=== PATIENT | female | born 1965 | race Caucasian/White ===

== ENCOUNTER 2017-09-19 16:07 | Inpatient (IN) | payer BC ==
--- NOTE | 2017-09-19 16:40 | Emergency Department Record ---
History of Present Illness - General Chief complaint: Lower Extremity Pain Stated complaint: BLOOD CLOT Time Seen by Provider: 09/19/17 16:29 Source: Patient, RN notes reviewed Mode of Arrival: Wheelchair - History of Present Illness Initial comments: patient sent to US department for a venous dopler on the left leg which was positive and she was brought to the ED. Patients oncologist Dr. Bailey sent her for the US, primary Dr. Zhong. No chest pain, No dyspnea and she had bladder cancer 1 years ago and she has a urostomy bag. Patients left leg is swollen and it started about 6 weeks ago. Leg started hurting about 6 weeks ago. Patient is currently getting cancer therapy. Post radiation therapy one month ago. Onset/Timin -: Month(s) Location: Left, Thigh History of Same: No Severity scale (1-10): 5 Quality: Aching Consistency: Constant Improves with: Nothing Worsens with: Walking Associated Symptoms: Denies other symptoms - Related Data Home Medications Medication Instructions Recorded Confirmed Last Taken Alprazolam [Alprazolam] 0.25 mg PO ASDIR 09/19/17 09/19/17 Unknown Atorvastatin Calcium [Lipitor] 20 mg PO DAILY 09/19/17 09/19/17 Unknown Dexamethasone [Dexamethasone] 2 mg PO DAILY 09/19/17 09/19/17 Unknown Omeprazole 20 mg PO DAILY 09/19/17 09/19/17 Unknown Allergies Allergy/AdvReac Type Severity Reaction Status Date / Time acetaminophen [From [place]] Allergy VOMITING Verified 09/19/17 16:24 hydrocodone [From [place]] Allergy VOMITING Verified 09/19/17 16:24 Travel Screening - Travel/Exposure Within Last 30 Days Have you traveled within the last 30 days?: No Review of Systems Reviewed: No additional complaints except as noted below Constitutional: Reports: As per HPI. Denies: Chills, Fever, Malaise, Night sweats, Weakness, Weight change Eyes: Reports: As per HPI. Denies: Eye discharge, Eye pain, Photophobia, Vision change ENT: Reports: As per HPI. Denies: Congestion, Dental pain, Ear pain, Epistaxis , Hearing loss, Throat pain Respiratory: Reports: As per HPI. Denies: Cough, Dyspnea, Hemoptysis, Stridor, Wheezes Cardiovascular: Reports: As per HPI. Denies: Arrhythmia, Chest pain, Dyspnea on exertion, Edema, Murmurs, Orthopnea, Palpitations, Paroxysmal nocturnal dyspnea, Rheumatic Fever, Syncope Endocrine: Reports: As per HPI. Denies: Fatigue, Heat or cold intolerance, Polydipsia, Polyuria Gastrointestinal: Reports: As per HPI. Denies: Abdominal pain, Constipation, Diarrhea, Hematemesis, Hematochezia, Melena, Nausea, Vomiting Genitourinary: Reports: As per HPI. Denies: Abnormal menses, Discharge, Dyspareunia, Dysuria, Frequency, Hematuria, Incontinence, Retention, Urgency Musculoskeletal: Reports: As per HPI. Denies: Arthralgia, Back pain, Gout, Joint swelling, Myalgia, Neck pain Skin: Reports: As per HPI. Denies: Bruising, Change in color, Change in hair/ nails, Lesions, Pruritus, Rash Neurological: Reports: As per HPI. Denies: Abnormal gait, Confusion, Headache, Numbness, Paresthesias, Seizure, Tingling, Tremors, Vertigo, Weakness Psychiatric: Reports: As per HPI. Denies: Anxiety, Auditory hallucinations, Depression, Homicidal thoughts, Suicidal thoughts, Visual hallucinations Hematological/Lymphatic: Reports: As per HPI. Denies: Anemia, Blood Clots, Easy bleeding, Easy bruising, Swollen glands Past Medical History - SOCIAL HISTORY Smoking Status: Current every day smoker Alcohol Use: None Drug Use: None - RESPIRATORY Hx Respiratory Disorders: No - CARDIOVASCULAR Hx Cardio Disorders: No Comment:: high cholesterol - NEURO Hx Neuro Disorders: Yes Hx Headaches: Yes Hx of Migraines: Yes - GI Hx GI Disorders: Yes Hx Reflux: Yes - Hx Genitourinary Disorders: No - ENDOCRINE Hx Endocrine Disorders: No - MUSCULOSKELETAL Hx Musculoskeletal Disorders: No - PSYCH Hx Psych Problems: No - HEMATOLOGY/ONCOLOGY Hx Hematology/Oncology Disorders: Yes Hx Cancer: Yes (bladder, brain) Family Medical History Any Significant Family History?: No Physical Exam - General General Appearance: Alert, Oriented x3, Cooperative, No acute distress - Head Head exam: Normal inspection - Eye Eye exam: Normal appearance, PERRL Pupils: Normal accommodation - ENT ENT exam: Normal exam, Mucous membranes moist, Normal external ear exam, Normal orophraynx, TM's normal bilaterally Ear exam: Normal external inspection. negative: External canal tenderness Nasal Exam: Normal inspection. negative: Discharge, Sinus tenderness Mouth exam: Normal external inspection, Tongue normal Teeth exam: Normal inspection. negative: Dental caries Throat exam: Normal inspection. negative: Tonsillar erythema, Tonsillar exudate - Neck Neck exam: Normal inspection, Full ROM. negative: Tenderness - Respiratory Respiratory exam: Normal lung sounds bilaterally. negative: Respiratory distress - Cardiovascular Cardiovascular Exam: Regular rate, Normal rhythm, Normal heart sounds - GI/Abdominal GI/Abdominal exam: Soft, Normal bowel sounds. negative: Tenderness - Rectal Rectal exam: Deferred - exam: Deferred - Extremities Extremities exam: Normal inspection, Full ROM, Normal capillary refill. negative: Tenderness - Back Back exam: Reports: Normal inspection, Full ROM. Denies: Muscle spasm, Rash noted, Tenderness - Neurological Neurological exam: Alert, Normal gait, Oriented X3, Reflexes normal - Psychiatric Psychiatric exam: Normal affect, Normal mood - Skin Skin exam: Dry, Intact, Normal color, Warm Course Vital Signs 09/19/17 16:17 Temperature 98.2 F Pulse Rate 85 Respiratory 18 Rate Blood Pressure 141/93 Pulse Ox 91 L US OF THE LEFT LOWER LEG POAITIVE FOR dvt IN THE LEFT COMMON FEMORAL VEIN and superficial vein and minimially in the popliteal vein. - Reevaluation(s) Reevaluation #1: discussed case with Sophie Ibanez and she was confidant we would be able to take care of this here and stable PE and DVT are being sent home from the ED with eder. Talked to Flavia and she accepted the patient. 09/19/17 20:02 Medical Decision Making - Data Complexity MDM Data: Labs Ordered and/or Reviewed, X-Ray Ordered and/or Reviewed (reviewed US dictation of the left leg and positive for a DVT , CTA bilateral upper lob PE in the branches small PE no central emboli) - Lab Data Result diagrams: 09/19/17 17:10 09/19/17 17:10 Disposition Clinical Impression: Hypokalemia DVT of leg (deep venous thrombosis) Qualifiers: Affected thrombotic vein of extremity: femoral Chronicity: acute Laterality: left Qualified Code(s): I82.412 - Acute embolism and thrombosis of left femoral vein Pulmonary embolism Qualifiers: Pulmonary embolism type: other Chronicity: acute Acute cor pulmonale presence: without acute cor pulmonale Qualified Code(s): I26.99 - Other pulmonary embolism without acute cor pulmonale Decision to Admit: Admit from ER Condition: (2) Stable Forms: Patient Portal Access Quality - Quality Measures Quality Measures: N/A - Blood Pressure Screening Does Patient Have Any of the Following: No Blood Pressure Classification: Hypertensive Reading Systolic Measurement: 141 Diastolic Measurement: 93 Screening for High Blood Pressure: < Pre-Hypertensive BP, F/U Documented > [ [id number]] Pre-Hypertensive Follow-up Interventions: Referral to alternative/primary care provider.
[2017-09-19 17:33] LABS: HEMATOCRIT 34.2 % (35.0-47.0); HEMOGLOBIN 11.5 gm/dl (11.6-16.0); MEAN CELL VOLUME 96.3 fl (81-97); MEAN CORPUSCULAR HGB CONC 33.6 g/dl (32-36); MEAN PLATELET VOLUME 10.8 fl (7.4-10.4); PLATELET COUNT 126 K/uL (130-400); RED BLOOD COUNT 3.55 M/uL (3.80-5.40); RED CELL DISTRIBUTION WIDTH 15.9 % (11.5-14.5); WHITE BLOOD COUNT W/O DIFF 7.6 K/uL (4.2-12.2)
[2017-09-19 17:35] LABS: MEAN CORPUSCULAR HEMOGLOBIN 32.3 pg (27-33)
[2017-09-19 17:43] LABS: PLATELET ESTIMATE NORMAL (NORMAL)
[2017-09-19 17:47] LABS: BLOOD UREA NITROGEN 13 mg/dL (6-20); CREATININE 0.6 mg/dL (0.5-0.9); EST GLOMERULAR FILTRATION RATE > 60 mL/min
[2017-09-19 17:49] LABS: INR 1.1; PARTIAL THROMBOPLASTIN TIME 27.4 SECONDS (24.5-39.1); PROTHROMBIN TIME (PATIENT) 11.3 SECONDS (9.5-12.1)
[2017-09-19 17:50] LABS: GLUCOSE,RANDOM 100 mg/dL (74-109)
[2017-09-19] MEDS ORDERED: APIXABAN 5MG TABLET PO ONE (18:38)
[2017-09-19] MEDS ORDERED: POTASSIUM CHLORIDE 20 MEQ TABLET PO ONE (18:42)
[2017-09-19] MEDS ORDERED: 0.9 % SODIUM CHLORIDE 500ML 500 ML IV SCH (18:45)
[2017-09-19] MEDS ORDERED: ALPRAZOLAM 0.25 MG TABLET PO SCH (22:09)
[2017-09-19] MEDS: ACETAMINOPHEN 500 MG TABLET PO PRN (23:43)
[2017-09-19] MEDS: APIXABAN 5MG TABLET PO SCH (23:44)
[2017-09-20] MEDS: PANTOPRAZOLE SODIUM 40 MG TABLET PO SCH (06:26)
[2017-09-20 06:55] LABS: HEMOGLOBIN 10.3 gm/dl (11.6-16.0); MEAN CELL VOLUME 97.2 fl (81-97); MEAN CORPUSCULAR HGB CONC 33.2 g/dl (32-36); MEAN PLATELET VOLUME 10.5 fl (7.4-10.4); PLATELET COUNT 129 K/uL (130-400); RED BLOOD COUNT 3.19 M/uL (3.80-5.40); RED CELL DISTRIBUTION WIDTH 15.9 % (11.5-14.5); WHITE BLOOD COUNT W/O DIFF 6.1 K/uL (4.2-12.2)
[2017-09-20 07:00] LABS: MEAN CORPUSCULAR HEMOGLOBIN 32.2 pg (27-33)
[2017-09-20 07:14] LABS: ALBUMIN 2.9 g/dL (4.0-5.0); ALKALINE PHOSPHATASE 73 U/L (35-104); ALT/SGPT 36 U/L (<33); AST/SGOT 25 U/L (10.0-35.0); BLOOD UREA NITROGEN 16 mg/dL (6-20); CREATININE 0.7 mg/dL (0.5-0.9); EST GLOMERULAR FILTRATION RATE > 60 mL/min; GLUCOSE,RANDOM 108 mg/dL (74-109); TOTAL PROTEIN 5.7 g/dL (6.6-8.7)
[2017-09-20] MEDS ORDERED: POTASSIUM CHLORIDE 20 MEQ TABLET PO ONE (08:33)
--- NOTE | 2017-09-20 08:37 | History & Physical ---
History of Present Illness - Date of Service Date of Service for History & Physical: 09/20/17 - History of Present Illness Admitting Diagnosis: left DVT. small PE Bilaterally in the periphery. hypokalemia. bladder cancer History of Present Illness: Mrs. Scott is a 52 year-old female who presented to the ED on 09/19 after having a venous doppler of her left leg which was positive for DVT extending from her knee to her hip. 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 Last radiation therapy was one month ago. She denied chest pain, dyspnea. She did complain of bilateral leg pain that began aboukt 6 weeks ago and left leg swelling. In the ED, CBC, CMP and PT/INR were ordered. Potassium was 2.8 and replaced with 40mEq K PO. An ultrasound of her left leg was performend and positive for DVT int eh left common femoral vein and superficial vein, minimally in the poplieal vein. CTA done and demonstrated several bilateral upper lobe PE in the branches small PE, no central embolil. Dr. Martinez discussed the case with Dr. Ibanez at [facility] and Dr. Ibanez was confident that [facility] could manage pt., stating that stable PE and DVT are being sent home from the ED with eliquis treatment. Pt. was admitted for initiation of Eliquis, cardiac monitoring, lab monitoring. 09/20/17 0930: Pt. is resting comfortably in bed. She is currently on 2L O2 nc and she does state that she has been increasingly short of breath over the last few days. She denies chest pain, headache, dizziness. Minimal swelling of left lower extremity is noted, popliteal and pedal pulses are palpable bilaterally. Her potassium this morning was 3.1- ordered 40mEq potassium chloride PO replacement. Will recheck BMP this afternoon and check pt's insurance of Eliquis for discharge coverage. PCP: Dr. Zhong Oncology: Dr. Bailey Travel Screening - Travel/Exposure Within Last 30 Days Have you traveled within the last 30 days?: No - Travel/Exposure Within Last Year Have you traveled outside the [place] in the last year?: No - Additonal Travel Details Have you been exposed to anyone with a communicable illness?: No - Travel Symptoms Symptom Screening: None Review of Systems Constitutional: Reports: As per HPI. Denies: Chills, Fever, Malaise, Night sweats, Weakness, Weight change Eyes: Reports: As per HPI. Denies: Eye discharge, Eye pain, Photophobia, Vision change ENT: Reports: As per HPI. Denies: Congestion, Dental pain, Ear pain, Epistaxis , Hearing loss, Throat pain Respiratory: Reports: Other (shortness of breath with exertion). Denies: Cough , Dyspnea, Hemoptysis, Stridor, Wheezes Cardiovascular: Reports: Other (left lower leg swelling). Denies: Arrhythmia, Chest pain, Dyspnea on exertion, Edema, Murmurs, Orthopnea, Palpitations, Paroxysmal nocturnal dyspnea, Rheumatic Fever, Syncope Endocrine: Reports: As per HPI. Denies: Fatigue, Heat or cold intolerance, Polydipsia, Polyuria Gastrointestinal: Reports: As per HPI. Denies: Abdominal pain, Constipation, Diarrhea, Hematemesis, Hematochezia, Melena, Nausea, Vomiting Genitourinary: Reports: Other (urostomy secondary to bladder CA). Denies: Abnormal menses, Discharge, Dyspareunia, Dysuria, Frequency, Hematuria, Incontinence, Retention, Urgency Musculoskeletal: Reports: As per HPI. Denies: Arthralgia, Back pain, Gout, Joint swelling, Myalgia, Neck pain Skin: Reports: As per HPI. Denies: Bruising, Change in color, Change in hair/ nails, Lesions, Pruritus, Rash Neurological: Reports: As per HPI. Denies: Abnormal gait, Confusion, Headache, Numbness, Paresthesias, Seizure, Tingling, Tremors, Vertigo, Weakness Psychiatric: Reports: As per HPI. Denies: Anxiety, Auditory hallucinations, Depression, Homicidal thoughts, Suicidal thoughts, Visual hallucinations Hematological/Lymphatic: Reports: As per HPI. Denies: Anemia, Blood Clots, Easy bleeding, Easy bruising, Swollen glands Past Medical History - SOCIAL HISTORY Smoking Status: Current every day smoker Alcohol Use: None Drug Use: None - RESPIRATORY Hx Respiratory Disorders: No - CARDIOVASCULAR Hx Cardio Disorders: No Comment:: high cholesterol - NEURO Hx Neuro Disorders: Yes Hx Headaches: Yes Hx of Migraines: Yes - GI Hx GI Disorders: Yes Hx Reflux: Yes - Hx Genitourinary Disorders: Yes Comment:: urostomy - ENDOCRINE Hx Endocrine Disorders: No - MUSCULOSKELETAL Hx Musculoskeletal Disorders: No - PSYCH Hx Psych Problems: No - HEMATOLOGY/ONCOLOGY Hx Hematology/Oncology Disorders: Yes Hx Cancer: Yes (bladder, brain) Hx Chemotherapy: Yes Hx Radiation Therapy: Yes (last tx 1 month ago) Family Medical History Any Significant Family History?: No H&P Meds/Allergies - Allergies Allergies: Allergies Allergy/AdvReac Type Severity Reaction Status Date / Time acetaminophen [From [place]] Allergy VOMITING Verified 09/19/17 16:24 hydrocodone [From [place]] Allergy VOMITING Verified 09/19/17 16:24 - Home Medications Home Medications Medication Instructions Recorded Confirmed Last Taken Alprazolam [Alprazolam] 0.25 mg PO ASDIR 09/19/17 09/19/17 Unknown Atorvastatin Calcium [Lipitor] 20 mg PO DAILY 09/19/17 09/19/17 Unknown Dexamethasone [Dexamethasone] 2 mg PO DAILY 09/19/17 09/19/17 Unknown Omeprazole 20 mg PO DAILY 09/19/17 09/19/17 Unknown - Active Medications Active Medications: Current Medications Acetaminophen (Tylenol 500mg Tab) 1,000 mg PO Q6H PRN PRN Reason: Mild Pain Last Admin: 09/19/17 23:43 Dose: 1,000 mg Alprazolam (Xanax) 0.25 mg PO ASDIR [facility] Apixaban (Eliquis) 10 mg PO BID [facility] Last Admin: 09/19/17 23:44 Dose: Not Given Atorvastatin Calcium (Lipitor) 20 mg PO DAILY [facility] Dexamethasone Sodium Phosphate (Decadron) 2 mg PO QHS [facility] Sodium Chloride () 500 mls @ 0 mls/hr IV .Q0M [facility] PRN Reason: Wide Open Pantoprazole Sodium (Protonix) 40 mg PO DAILYAC [facility] Last Admin: 09/20/17 06:26 Dose: 40 mg Physical Exam - Vital Signs Vital Signs: Vital Signs - Last 24 Hrs Temp Pulse Pulse Resp BP BP Pulse Ox 09/20/17 06:00 97 F L 83 16 106/68 98 09/19/17 22:29 85 18 130/92 94 L - General General Appearance: Alert, Oriented x3, Cooperative, No acute distress - Head Head exam: Normal inspection - Eye Eye exam: Normal appearance, PERRL Pupils: Normal accommodation - ENT ENT exam: Normal exam, Mucous membranes moist, Normal external ear exam, Normal orophraynx, TM's normal bilaterally Ear exam: Normal external inspection. negative: External canal tenderness Nasal Exam: Normal inspection. negative: Discharge, Sinus tenderness Mouth exam: Normal external inspection, Tongue normal Teeth exam: Normal inspection. negative: Dental caries Throat exam: Normal inspection. negative: Tonsillar erythema, Tonsillar exudate - Neck Neck exam: Normal inspection, Full ROM. negative: Tenderness - Respiratory Respiratory exam: Normal lung sounds bilaterally, Other (On 2L O2 nc) - Cardiovascular Cardiovascular Exam: Regular rate, Normal rhythm, Normal heart sounds - GI/Abdominal GI/Abdominal exam: Soft, Normal bowel sounds. negative: Tenderness - Rectal Rectal exam: Deferred - exam: Deferred - Extremities Extremities exam: Normal inspection, Full ROM, Normal capillary refill, Other ( no visible LLE swelling, no redness or warmth ). negative: Tenderness - Back Back exam: Reports: Normal inspection, Full ROM. Denies: Muscle spasm, Rash noted, Tenderness - Neurological Neurological exam: Alert, Normal gait, Oriented X3, Reflexes normal - Psychiatric Psychiatric exam: Normal affect, Normal mood - Skin Skin exam: Dry, Intact, Normal color, Warm Results - Labs Result Diagrams: 09/20/17 06:35 09/20/17 06:35 Labs Last 24 Hours: Laboratory Results - last 24 hr 09/20/17 09/20/17 06:35 06:35 WBC 6.1 RBC 3.19 L Hgb 10.3 L Hct 31.0 L MCV 97.2 H MCH 32.2 MCHC 33.2 RDW 15.9 H Plt Count 129 L MPV 10.5 H Neutrophils % 90.0 H Band Neutrophils % 0.0 Eosinophils % Not Reportable Basophils % Not Reportable Lymphocytes 8.0 L Monocytes 2.0 Basophils 0.0 Eosinophil Count 0.0 Sodium 137 Potassium 3.1 L Chloride 96 L Carbon Dioxide 29.0 Anion Gap 12.0 BUN 16 Creatinine 0.7 Estimated GFR > 60 Random Glucose 108 Calcium 9.0 Total Bilirubin 0.50 AST 25 ALT 36 H Alkaline Phosphatase 73 Total Protein 5.7 L Albumin 2.9 L Globulin 2.8 Albumin/Globulin Ratio 1.0 L - Imaging and Cardiology Venous US Status: Report reviewed CT scan - chest Status: Pending, Image reviewed VTE H&P Assessment - Risk for VTE Risk for VTE: Yes Risk Level: High Risk Assessment Date: 09/20/17 Risk Assessment Time: 08:39 VTE Orders Placed or Will Be Placed: Yes - VTE Confirmation VTE Confirmed w/Diagnostic Imaging Test: Yes (Ultrasound, positive DVT from left knee to left hip) - VTE Diagnosis IF SUSPECTED VTE, document diagnosis date: 09/19/17 IF SUSPECTED VTE, document diagnosis time: 18:00 Plan - Inpatient Certification Inpatient Certification: Admit to inpatient care: Based on my medical assessment, after consideration of patient's risk factors (age, co-morbidities and patient presenting symptoms and acuity), I expect that this patient will remain in the hospital greater than or equal to two midnights and that the services needed warrant inpatient care because: Patient Risk Factors: [Age, comorbidity of current bladder cancer and treatment , current DVT and PEs] Estimated length of stay: [48-72 hours] The patient may reasonably be expected to be discharged or transferred to a hospital within 96 hours after admission to [facility]. Services needed: [anticoagulation, lab monitoring, oxygen therapy] Post hospital care (if known): [] I certify that my determination is in accordance with my understanding of Medicare requirements for reasonable and necessary inpatient services. 09/20/17 10:25 - Detailed Diagnosis and Plan (1) DVT of leg (deep venous thrombosis) Current Visit: Yes Status: Acute Qualifiers: Affected thrombotic vein of extremity: femoral Chronicity: acute Laterality: left Qualified Code(s): I82.412 - Acute embolism and thrombosis of left femoral vein Base Code: I82.409 - ACUTE EMBOLISM AND THOMBOS UNSP DEEP VN UNSP LOWER EXTREMITY Comment: 09/20/17: L leg DVT confirmed on ultrasound 09/19, extending from knee to hip. Eliquis 10mg bid initiated. CTA done and did show multiple small PE. Pt. c/o some shortness of breath- she is currenlty on 2L O2 [place]. (2) Pulmonary embolism Current Visit: Yes Status: Acute Qualifiers: Pulmonary embolism type: other Chronicity: acute Acute cor pulmonale presence: without acute cor pulmonale Qualified Code(s): I26.99 - Other pulmonary embolism without acute cor pulmonale Base Code: I26.99 - OTHER PULMONARY EMBOLISM WITHOUT ACUTE COR PULMONALE Comment: 09/20/17: Several RUL emboli demonstrated on CTA 09/19- pt. is recievein eliquis 10mg bid. Pt. c/o some shortness of breath, currently on 2L O2 nc. 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 (3) Hypokalemia Current Visit: Yes Status: Acute Base Code: E87.6 - HYPOKALEMIA Comment: : Potassium was 3.1 this morning- 40mEq K ordered PO. (Potassium was 2.8 last evening and replaced with 40mEq PO as well). Will recheck BMP this afternoon. (4) Bladder cancer Current Visit: Yes Status: Acute Base Code: C67.9 - MALIGNANT NEOPLASM OF BLADDER, UNSPECIFIED Comment: 09/20/17: Pt. 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 Bailey. Will plan to update oncology of pt's status today and ask if any recommendations. (5) Full code status Current Visit: Yes Status: Acute Base Code: Z78.9 - OTHER SPECIFIED HEALTH STATUS Comment: 09/20/17: Pt. is full code status
[2017-09-20] MEDS ORDERED: ALPRAZOLAM 0.25 MG TABLET PO PRN (09:15)
--- NOTE | 2017-09-20 10:41 | CT ANGIOGRAM REPORT ---
EXAM: CT ANGIOGRAM OF THE CHEST WITH POST PROCESSING HISTORY: DVT WITHIN THE LEFT LOWER EXTREMITY. HISTORY OF BLADDER CANCER WITH BRAIN METASTASIS. TECHNIQUE: Standard CT angiography of the chest was performed with post processing following the bolus administration of 72 ml of Omnipaque 350. Additional coronal and sagittal maximum intensity projection reformatted images were also performed. Comparison: Previous chest CT dated 06/05/17. FINDINGS: Small emboli are noted within the left upper, right upper, and right lower lobe pulmonary arterial branches. There are no central emboli. The aorta is normal in caliber. There is no dissection. Mild coronary artery calcifications are present. There is no mediastinal or hilar lymphadenopathy. Emphysematous changes are present within both lungs. There are patchy bilateral ground glass infiltrates within the mid and upper lung orosco bilaterally. The appearance favors acute pneumonitis. There is a focal area of atelectasis/consolidation involving the left lung base laterally measuring 3.4 x 1.7 cm. There is no pneumothorax or effusion. Mild pleural and parenchymal scarring are present at the lung apices, right greater than left. The chest wall and axillary regions are normal. A 3 mm nonobstructing stone is present within the right kidney. The upper abdomen is otherwise normal. Degenerative changes are present within the spine. No osteoblastic or osteolytic process is identified. IMPRESSION: 1. SMALL EMBOLI WITHIN THE RIGHT UPPER, RIGHT LOWER, AND LEFT UPPER LOBE PULMONARY ARTERIAL BRANCHES. 2. PATCHY GROUND GLASS INFILTRATES WITHIN THE MID AND UPPER LUNG OROSCO BILATERALLY SUGGESTING ACUTE PNEUMONIA. 3. FOCAL ATELECTASIS/CONSOLIDATION AT THE LEFT LUNG BASE LATERALLY MEASURING 3.4 X 1.7 CM. FOLLOW-UP RADIOGRAPHS ARE RECOMMENDED TO CONFIRM CLEARING. JOB NUMBER: [id number] [facility]
[2017-09-20] MEDS ORDERED: AZITHROMYCIN 500 MG TABLET PO ONE (10:49)
[2017-09-20] MEDS: APIXABAN 5MG TABLET PO SCH (11:29)
[2017-09-20] MEDS: CEFTRIAXONE SODIUM 1 GM in 0.9 % SODIUM CHLORIDE 100ML 100 ML IVPB SCH ×2 (11:30→22:38)
[2017-09-20] MEDS: 0.9 % SODIUM CHLORIDE 1000ML 1,000 ML IV PRN ×2 (14:52→22:39)
[2017-09-20] MEDS ORDERED: ACETAMINOPHEN 500 MG TABLET PO PRN (14:53)
[2017-09-20 15:08] LABS: BASO % 0.2 % (0-6); EOS % 0.1 % (0-6); HEMATOCRIT 33.6 % (35.0-47.0); HEMOGLOBIN 11.2 gm/dl (11.6-16.0); LYMPH % 8.4 % (16-45); MEAN CELL VOLUME 97.1 fl (81-97); MEAN CORPUSCULAR HEMOGLOBIN 32.3 pg (27-33); MEAN CORPUSCULAR HGB CONC 33.3 g/dl (32-36); MEAN PLATELET VOLUME 10.6 fl (7.4-10.4); MONO % 1.8 % (0-9); PLATELET COUNT 142 K/uL (130-400); RED BLOOD COUNT 3.46 M/uL (3.80-5.40); RED CELL DISTRIBUTION WIDTH 16.2 % (11.5-14.5); WHITE BLOOD COUNT W/O DIFF 8.8 K/uL (4.2-12.2)
[2017-09-20 15:20] LABS: BLOOD UREA NITROGEN 14 mg/dL (6-20); CREATININE 0.7 mg/dL (0.5-0.9); EST GLOMERULAR FILTRATION RATE > 60 mL/min; TOTAL PROTEIN 5.8 g/dL (6.6-8.7)
[2017-09-20 15:22] LABS: GLUCOSE,RANDOM 144 mg/dL (74-109)
[2017-09-20 15:25] LABS: ALB/GLOB RATIO 1.1 (1.1-1.8); ALKALINE PHOSPHATASE 82 U/L (35-104); ALT/SGPT 36 U/L (<33); AST/SGOT 25 U/L (10.0-35.0)
[2017-09-20] MEDS: ACETAMINOPHEN 500 MG TABLET PO PRN ×2 (16:48→22:37)
[2017-09-20] MEDS ORDERED: DEXAMETHASONE SOD PHOSPHATE 10MG/ML VIAL PO SCH (22:00)
[2017-09-20] MEDS ORDERED: ATORVASTATIN 20 MG TABLET PO SCH (22:00)
[2017-09-20] MEDS: ENOXAPARIN 80 MG/0.8 ML SYR SQ SCH (22:38)
[2017-09-21] MEDS: 0.9 % SODIUM CHLORIDE 1000ML 1,000 ML IV PRN (06:52)
[2017-09-21] MEDS: PANTOPRAZOLE SODIUM 40 MG TABLET PO SCH (06:52)
[2017-09-21 07:01] LABS: HEMATOCRIT 30.8 % (35.0-47.0); HEMOGLOBIN 9.9 gm/dl (11.6-16.0); MEAN CORPUSCULAR HEMOGLOBIN 31.8 pg (27-33); MEAN CORPUSCULAR HGB CONC 32.1 g/dl (32-36); MEAN PLATELET VOLUME 10.7 fl (7.4-10.4); PLATELET COUNT 144 K/uL (130-400); RED BLOOD COUNT 3.11 M/uL (3.80-5.40); RED CELL DISTRIBUTION WIDTH 16.6 % (11.5-14.5); WHITE BLOOD COUNT W/O DIFF 7.8 K/uL (4.2-12.2)
[2017-09-21 07:21] LABS: ALB/GLOB RATIO 0.8 (1.1-1.8); ALBUMIN 2.5 g/dL (4.0-5.0); ALKALINE PHOSPHATASE 78 U/L (35-104); ALT/SGPT 27 U/L (<33); AST/SGOT 18 U/L (10.0-35.0); BLOOD UREA NITROGEN 11 mg/dL (6-20); CREATININE 0.5 mg/dL (0.5-0.9); EST GLOMERULAR FILTRATION RATE > 60 mL/min; GLUCOSE,RANDOM 177 mg/dL (74-109); TOTAL PROTEIN 5.5 g/dL (6.6-8.7)
[2017-09-21 07:32] LABS: PLATELET ESTIMATE NORMAL (NORMAL)
[2017-09-21] MEDS: ENOXAPARIN 80 MG/0.8 ML SYR SQ SCH (09:34)
[2017-09-21] MEDS ORDERED: AZITHROMYCIN 250 MG TABLET PO SCH (10:00)
[2017-09-21] MEDS: CEFTRIAXONE SODIUM 1 GM in 0.9 % SODIUM CHLORIDE 100ML 100 ML IVPB SCH (11:04)
--- NOTE | 2017-09-21 12:44 | Discharge Summary ---
Providers Discharge Summary Date: 09/21/17 Date of admission: 09/19/17 21:44 Expected Date of Discharge: 09/21/17 Attending physician: BRENNON LAI Primary care physician: RAMONA GLASS D.O. Physical Exam - Vital Signs Vital Signs: Vital Signs - Last 24 Hrs Temp Pulse Pulse Pulse Resp BP BP 09/21/17 09:09 84 16 09/21/17 08:46 97.5 F L 86 76 20 126/78 09/21/17 07:40 20 09/21/17 04:55 98.5 F 82 20 114/73 09/21/17 00:06 98.1 F 89 20 101/57 09/20/17 22:00 98.2 F 09/20/17 20:07 99 H 16 09/20/17 20:00 98.1 F 97 H 20 94/60 09/20/17 18:00 98.2 F 99 H 16 107/61 09/20/17 17:36 99.4 F 120 H 24 09/20/17 16:34 103.2 F H 09/20/17 14:00 100.8 F H 152 H 24 134/76 Pulse Ox 09/21/17 09:09 93 L 09/21/17 08:46 95 09/21/17 07:40 09/21/17 04:55 94 L 09/21/17 00:06 91 L 09/20/17 22:00 09/20/17 20:07 91 L 09/20/17 20:00 91 L 09/20/17 18:00 90 L 09/20/17 17:36 91 L 09/20/17 16:34 09/20/17 14:00 95 - General General Appearance: Alert, Oriented x3, Cooperative, No acute distress - Head Head exam: Normal inspection - Eye Eye exam: Normal appearance, PERRL Pupils: Normal accommodation - ENT ENT exam: Normal exam, Mucous membranes moist, Normal external ear exam, Normal orophraynx, TM's normal bilaterally Ear exam: Normal external inspection. negative: External canal tenderness Nasal Exam: Normal inspection. negative: Discharge, Sinus tenderness Mouth exam: Normal external inspection, Tongue normal Teeth exam: Normal inspection. negative: Dental caries Throat exam: Normal inspection. negative: Tonsillar erythema, Tonsillar exudate - Neck Neck exam: Normal inspection, Full ROM. negative: Tenderness - Respiratory Respiratory exam: Normal lung sounds bilaterally - Cardiovascular Cardiovascular Exam: Regular rate, Normal rhythm, Normal heart sounds - GI/Abdominal GI/Abdominal exam: Soft, Normal bowel sounds. negative: Tenderness - Rectal Rectal exam: Deferred - exam: Deferred - Extremities Extremities exam: Normal inspection, Full ROM, Normal capillary refill, Other ( no visible LLE swelling, no redness or warmth ). negative: Tenderness - Back Back exam: Reports: Normal inspection, Full ROM. Denies: Muscle spasm, Rash noted, Tenderness - Neurological Neurological exam: Alert, Normal gait, Oriented X3, Reflexes normal - Psychiatric Psychiatric exam: Normal affect, Normal mood - Skin Skin exam: Dry, Intact, Normal color, Warm Hospitalization - Hospitalization Admission Diagnosis: left DVT. small PE Bilaterally in the periphery. hypokalemia. bladder cancer - Problem List/Discharge Diagnosis (1) DVT of leg (deep venous thrombosis) Status: Acute Discharge Diagnosis: Affected thrombotic vein of extremity: femoral Chronicity: acute Laterality: left Qualified Code(s): I82.412 - Acute embolism and thrombosis of left femoral vein Base Code: I82.409 - ACUTE EMBOLISM AND THOMBOS UNSP DEEP VN UNSP LOWER EXTREMITY Comment: 09/21/17: L leg DVT confirmed on ultrasound 09/19, extending from knee to hip. CTA done and did show multiple small PE. Lovenox 70mg bid sc. Plan to d/c home with lovenox, education provided to pt. regarding injection. (2) Pulmonary embolism Status: Acute Discharge Diagnosis: Pulmonary embolism type: other Chronicity: acute Acute cor pulmonale presence: without acute cor pulmonale Qualified Code(s): I26.99 - Other pulmonary embolism without acute cor pulmonale Base Code: I26.99 - OTHER PULMONARY EMBOLISM WITHOUT ACUTE COR PULMONALE Comment: 09/21/17: Several RUL emboli demonstrated on CTA 09/19- pt. is recievein eliquis 10mg bid. Pt. has remained in NSR on tele. She passes home O2 qualifier, no oxygen needed for home. Will plan d/c this afternoon and continue lovenox treatment at home. (3) Hypokalemia Status: Acute Base Code: E87.6 - HYPOKALEMIA Comment: 09/21/17: Potassium increased to 4.1 this morning. (4) Bladder cancer Status: Acute Base Code: C67.9 - MALIGNANT NEOPLASM OF BLADDER, UNSPECIFIED Comment: 09/21/17: Pt. 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 Bailey. (5) Full code status Status: Acute Base Code: Z78.9 - OTHER SPECIFIED HEALTH STATUS Comment: 09/21: Pt. remains full code status - Hospitalization Course Disposition: Home Health Service Hospital Course: Mrs. Scott is a 52 year-old female who presented to the ED on 09/19 after having a venous doppler of her left leg which was positive for DVT extending from her knee to her hip. 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 Last radiation therapy was one month ago. She denied chest pain, dyspnea. She did complain of bilateral leg pain that began aboukt 6 weeks ago and left leg swelling. In the ED, CBC, CMP and PT/INR were ordered. Potassium was 2.8 and replaced with 40mEq K PO. An ultrasound of her left leg was performend and positive for DVT int eh left common femoral vein and superficial vein, minimally in the poplieal vein. CTA done and demonstrated several bilateral upper lobe PE in the branches small PE, no central embolil. Dr. Martinez discussed the case with Dr. Ibanez at [facility] and Dr. Ibanez was confident that [facility] could manage pt., stating that stable PE and DVT are being sent home from the ED with eliquis treatment. Pt. was admitted for initiation of Eliquis, cardiac monitoring, lab monitoring. 09/20/17 0930: Pt. is resting comfortably in bed. She is currently on 2L O2 nc and she does state that she has been increasingly short of breath over the last few days. She denies chest pain, headache, dizziness. Minimal swelling of left lower extremity is noted, popliteal and pedal pulses are palpable bilaterally. Her potassium this morning was 3.1- ordered 40mEq potassium chloride PO replacement. Will recheck BMP this afternoon and check pt's insurance of Eliquis for discharge coverage. 09/21/17 1100: Pt. is resting in bed. She is on 2L O2 nc, she currently denies shortness of breath. She has been up to the BR with no difficulty. She continues to deny chest pain, headache, dizziness. Eliquis was changed to lovenox 70mg bid sc- per current recommendations, lovenox preferred for PE/DVT in oncology patients. CBC and CMP remain stable. Pt. passed home O2 qualifier. Plan to change abx to PO and d/c home this afternoon. PCP: Dr. Glass Oncology: Dr. Bailey Abnormal Labs: Abnormal Lab Results 09/20/17 09/20/17 09/20/17 Range/Units 06:35 06:35 14:59 RBC 3.19 L 3.46 L (3.80-5.40) M/uL Hgb 10.3 L 11.2 L (11.6-16.0) gm/dl Hct 31.0 L 33.6 L (35.0-47.0) % MCV 97.2 H 97.1 H (81-97) fl RDW 15.9 H 16.2 H (11.5-14.5) % Plt Count 129 L (130-400) K/uL MPV 10.5 H 10.6 H (7.4-10.4) fl Neutrophils % 90.0 H 89.0 H (47-80) % Lymphocytes % 8.4 L (16-45) % Lymphocytes 8.0 L 8.0 L (16-45) % Potassium 3.1 L (3.4-4.5) mmol/L Chloride 96 L (98-107) mmol/L Random Glucose (74-109) mg/dL Calcium (8.6-10.0) mg/dL ALT 36 H (<33) U/L Total Protein 5.7 L (6.6-8.7) g/dL Albumin 2.9 L (4.0-5.0) g/dL Albumin/Globulin Ratio 1.0 L (1.1-1.8) 09/20/17 09/21/17 09/21/17 Range/Units 14:59 06:20 06:20 RBC 3.11 L (3.80-5.40) M/uL Hgb 9.9 L (11.6-16.0) gm/dl Hct 30.8 L (35.0-47.0) % MCV 99.0 H (81-97) fl RDW 16.6 H (11.5-14.5) % Plt Count (130-400) K/uL MPV 10.7 H (7.4-10.4) fl Neutrophils % 91.0 H (47-80) % Lymphocytes % (16-45) % Lymphocytes 8.0 L (16-45) % Potassium (3.4-4.5) mmol/L Chloride 96 L (98-107) mmol/L Random Glucose 144 H 177 H (74-109) mg/dL Calcium 8.5 L (8.6-10.0) mg/dL ALT 36 H (<33) U/L Total Protein 5.8 L 5.5 L (6.6-8.7) g/dL Albumin 3.0 L 2.5 L (4.0-5.0) g/dL Albumin/Globulin Ratio 0.8 L (1.1-1.8) Condition at Discharge: (2) Stable Discharge Diagnosis: Bilateral lung PE, left leg DVT, pneumonia Discharge Medications - Discharge Medications Prescriptions: Azithromycin [Zithromax] 250 mg PO DAILY #3 tab Cefdinir 300 mg PO BID #6 capsule Enoxaparin Sodium [Lovenox] 60 mg SQ BID 30 Days #60 syr Home Medications: Ambulatory Orders Alprazolam 0.25 mg PO ASDIR 09/19/17 [Last Taken Unknown] Atorvastatin Calcium [Lipitor] 20 mg PO DAILY 09/19/17 [Last Taken Unknown] Dexamethasone 2 mg PO DAILY 09/19/17 [Last Taken Unknown] Omeprazole 20 mg PO DAILY 09/19/17 [Last Taken Unknown] Azithromycin [Zithromax] 250 mg PO DAILY #3 tab 09/21/17 [Last Taken Unknown] Cefdinir 300 mg PO BID #6 capsule 09/21/17 [Last Taken Unknown] Enoxaparin Sodium [Lovenox] 60 mg SQ BID 30 Days #60 syr 09/21/17 [Last Taken Unknown] Discharge Plan - Discharge Instructions Activity at Discharge: Increase Activity as Tolerated Diet at Discharge: Regular Diet Instructions: Pulmonary Embolism (DC), Deep Venous Thrombosis (DC), Deep Vein Thrombosis Prevention (DC) Additional Instructions: Continue azithromycin 250mg for 3 more days. Start tomorrow Continue cefdinir 300mg twice daily for 3 more days. Start tonight Continue lovenox injections- 60units twice daily Treat fever with tylenol Diet and activity as tolerated Follow up with your doctor within 3-5 days of discharge Return to the ED if shortness of breath worsens or if you experience any chest pain Quality Measures - Quality Measures Quality Measures: Documentation of Current Medications in Medical Record, Screening for High Blood Pressure and F/U Documented - Current Medications Quality Measure: Measure #130: Documentation of Current Medications Documentation of Current Medications: <Current Medications Documented/Reviewed> [G8427] - Blood Pressure Screening Quality Measure: Screening for High Blood Pressure and Follow-Up Documented Does Patient Have Any of the Following: Active Dx of HTN Blood Pressure Classification: Hypertensive Reading Systolic Measurement: 130 Diastolic Measurement: 92 Screening for High Blood Pressure: < Normal BP, F/U Not Required > [G8783] - Elder Abuse Suspicion Index EASI Reference Information: Meseret SMITH, Abimael C, Steve D, Arminda Demarco.Development and validation of a tool to assist physicians identification of elder abuse: The Elder Abuse Suspicion Index (EASI ). Journal of Elder Abuse and Neglect, 2008; 20 (3): 276-300.
[2017-09-21] MEDS ORDERED: CEFDINIR 300 MG CAPSULE PO SCH (22:00)
[2017-09-21] MEDS ORDERED: ENOXAPARIN 60 MG/0.6 ML SYR SQ SCH (22:00)
== END 2017-09-21 15:30 | disposition home health service (06) | DRG 175 ==
LOC: ER 16:07 → MEDSURG 21:44
PROVIDERS: ADMIT Internal Medicine; ATTEND Internal Medicine
DX: I26.99 Other pulmonary embolism without acute cor pulmonale (principal); J18.9 Pneumonia, unspecified organism; I82.409 Acute embolism and thrombosis of unspecified deep veins of unspecified lower extremity; C79.31 Secondary malignant neoplasm of brain; C67.9 Malignant neoplasm of bladder, unspecified; E87.6 Hypokalemia; F17.210 Nicotine dependence, cigarettes, uncomplicated
CPT/HCPCS: 71275; 80048; 80053; 85027; 85610; 85730; 94620; 94760; 99223; 99239; 99285